=== PATIENT | female | born 1980 | race Caucasian/White ===

== ENCOUNTER 2017-09-26 16:13 | Emergency (ER) | END 2017-09-26 19:03 | disposition home or self-care (01) ==

== ENCOUNTER 2017-10-14 01:26 | Emergency (ER) | END 2017-10-14 04:22 | disposition home or self-care (01) ==

== ENCOUNTER 2018-01-17 13:38 | Emergency (ER) | END 2018-01-17 17:01 | disposition home or self-care (01) ==

== ENCOUNTER 2018-02-26 03:57 | Emergency (ER) | END 2018-02-26 09:45 | disposition home or self-care (01) ==